=== PATIENT | female | born 1960 ===

== ENCOUNTER → 2023-07-05 09:57 | Outpatient (REF) | payer MEDICARE, MEDICAID, SELFPAY | LOC: WDC 09:57 | PROVIDERS: ATTENDING PHYSICIAN Surgery; FAMILY PHYSICIAN Internal Medicine | DX: Z12.31 Encounter for screening mammogram for malignant neoplasm of breast (principal) | CPT/HCPCS: 77063; 77067 ==

== ENCOUNTER → 2024-07-08 15:42 | Outpatient (REF) | payer MEDICARE, MEDICAID, SELFPAY | LOC: WDC 15:42 | PROVIDERS: ATTENDING PHYSICIAN Surgery; FAMILY PHYSICIAN Internal Medicine | DX: Z12.31 Encounter for screening mammogram for malignant neoplasm of breast (principal) | CPT/HCPCS: 77063; 77067 ==

== ENCOUNTER → 2024-08-01 08:52 | Outpatient (REF) | payer MEDICARE, MEDICAID, SELFPAY | LOC: PAVMRI 08:52 | PROVIDERS: ATTENDING PHYSICIAN Physician Assistant Surgical; FAMILY PHYSICIAN Internal Medicine | DX: M25.561 Pain in right knee (principal); D16.21 Benign neoplasm of long bones of right lower limb | CPT/HCPCS: 73721 ==

== ENCOUNTER → 2024-10-19 09:08 | Outpatient (REF) | payer MEDICARE, MEDICAID, SELFPAY | LOC: WDC 09:08 | PROVIDERS: ATTENDING PHYSICIAN Surgery; FAMILY PHYSICIAN Internal Medicine | DX: N64.52 Nipple discharge (principal) | CPT/HCPCS: 76642 ==

== ENCOUNTER → 2024-10-28 16:50 | Outpatient (REF) | payer MEDICARE, MEDICAID, SELFPAY | LOC: MRI 3T 16:50 | PROVIDERS: ATTENDING PHYSICIAN Surgery; FAMILY PHYSICIAN Internal Medicine | DX: N64.52 Nipple discharge (principal); Z85.3 Personal history of malignant neoplasm of breast | CPT/HCPCS: 77049; A9585 ==

== ENCOUNTER 2024-11-20 06:17 | Day surgery (SDC) | payer MEDICARE, MEDICAID, SELFPAY ==
[2024-11-20 08:00] LABS: Glucose - Point of Care 86 mg/dl (70-99)
== END 2024-11-20 13:15 | disposition home or self-care (01) ==
LOC: GI 06:17
PROVIDERS: ATTENDING PHYSICIAN Internal Medicine Gastroenterology; FAMILY PHYSICIAN Internal Medicine
DX: Z12.11 Encounter for screening for malignant neoplasm of colon (principal); K64.8 Other hemorrhoids; K57.30 Diverticulosis of large intestine without perforation or abscess without bleeding; K56.699 Other intestinal obstruction unspecified as to partial versus complete obstruction
CPT/HCPCS: G0121; 82962

== ENCOUNTER → 2025-01-01 15:33 | Outpatient (REF) | payer MEDICARE, MEDICAID, SELFPAY | LOC: RCS 15:33 | PROVIDERS: ATTENDING PHYSICIAN Internal Medicine Cardiovascular Disease; FAMILY PHYSICIAN Internal Medicine | DX: I35.1 Nonrheumatic aortic (valve) insufficiency (principal); I34.0 Nonrheumatic mitral (valve) insufficiency | CPT/HCPCS: 93306 ==